=== PATIENT | female | born 1980 | race Two or more races ===

== ENCOUNTER 2017-11-24 11:11 | Emergency (ER) | payer SELFPAY ==
[~2017-11-24] VITALS: Ht 157.5 cm; Wt 68.0 kg
[2017-11-24 11:42] VITALS: BP 136/80
[2017-11-24] MEDS ORDERED: KETOROLAC TROMETH 60MG/2ML VIAL IM ONE (12:30)
== END 2017-11-24 13:09 | disposition home or self-care (01) ==
LOC: ER 11:11
DX: S16.1XXA Strain of muscle, fascia and tendon at neck level, initial encounter (principal); R51 Headache; V43.52XA Car driver injured in collision with other type car in traffic accident, initial encounter; Y93.89 Activity, other specified; Y99.8 Other external cause status; Y92.410 Unspecified street and highway as the place of occurrence of the external cause
CPT/HCPCS: 70450; 72125; 96372; 99284; J1885